=== PATIENT | female | born 1945 | race Caucasian/White ===

== ENCOUNTER 2016-12-05 06:41 | Day surgery (SDC) | payer OTHER ==
[~2016-12-05] VITALS: Ht 158.8 cm; Wt 65.0 kg
[~2016-12-05 06:41] MED LIST: FAMC250T PO; PRED10 PO
[2016-12-05 07:04] VITALS: BP 151/85; PULSE 85; RESP 20; TEMP 99.3; O2SAT 94
[2016-12-05] MEDS ORDERED: BENA25TA3 PO (07:13)
[2016-12-05] MEDS ORDERED: VAGI10TA VAGINAL (07:13)
[2016-12-05] MEDS ORDERED: LORA-392 PO (07:13)
[2016-12-05] MEDS ORDERED: ESTR0.62 TOP (07:13)
[2016-12-05] MEDS ORDERED: ERGO1CAP10 PO (07:13)
[2016-12-05] MEDS ORDERED: ADVI200C5 PO (07:13)
[2016-12-05 07:45] LABS: AUTOMATED NEUTROPHIL # 4.5 TH/MM3 (1.8-7.7); BASOPHIL % 0.4 % (0.0-2.0); EOSINOPHIL # 0.2 TH/MM3 (0-0.4); EOSINOPHIL % 2.7 % (0.0-4.0); HEMATOCRIT 43.9 % (35.0-46.0); HEMO FLAGS DIFF FINAL; LYMPH % 24.5 % (9.0-44.0); LYMPHOCYTE # 1.6 TH/MM3 (1.0-4.8); MEAN CELL VOLUME 89.8 FL (80.0-100.0); MEAN CORPUSCULAR HEMOGLOBIN 30.7 PG (27.0-34.0); MEAN CORPUSCULAR HGB CONC 34.1 % (32.0-36.0); MONO % 5.3 % (0.0-8.0); NEUT % 67.1 % (16.0-70.0); PLATELET COUNT 164 TH/MM3 (150-450); RED BLOOD COUNT 4.89 MIL/MM3 (4.00-5.30); RED CELL DISTRIBUTION WIDTH 13.8 % (11.6-17.2); WHITE BLOOD COUNT 6.7 TH/MM3 (4.0-11.0)
[2016-12-05] MEDS ORDERED: CHLORHEXIDINE GLUCONATE 2 % 1 PACK (2 CLOTHS) TOPICAL SCH (07:45)
[2016-12-05] MEDS ORDERED: SODIUM CHLORIDE 0.9% 1000 ML IV SCH (07:45)
[2016-12-05] MEDS ORDERED: VANCOMYCIN 1000 MG/NS 250 ML - implanted port/tunneled catheter IV SCH ×2 (07:45)
[2016-12-05] MEDS ORDERED: POVIDONE IODINE 5% (ANTISEPSIS KIT) 4 APPLICATIONS EACH NARE SCH (07:45)
[2016-12-05 07:51] LABS: APTT (PATIENT) 24.2 SEC (24.3-30.1); PROTHROMBIN TIME - PATIENT 10.6 SEC (9.8-11.6)
[2016-12-05] MEDS ORDERED: fentaNYL CITRATE 250 MCG/5 ML AMP ONE (08:25)
[2016-12-05] MEDS ORDERED: MIDAZOLAM HCL 5 MG/5 ML VIAL ONE (08:25)
[2016-12-05] MEDS ORDERED: LIDOCAINE 1%/EPINEPHrine 1:100,000 SOLN 20 ML VIAL ONE (08:46)
--- NOTE | 2016-12-05 09:05 | PD.RAD ---
Post Procedure Progress Note Pre Procedure Diagnosis: (1) Cancer Post Procedure Diagnosis: (1) Cancer Procedure Date: Dec 05, 2016 Supervising Radiologist: Claudy Rodriguez Proceduralist/Assist: Mallika Bravo, RT(R), Brittany Covarrubias RT(R)() Anesthesia: Conscious Sedation Plan of Activity Patient to Unit: ROPU Patient Condition: Good See PACS Report for procedural detail/treatment Central Venous Access Device Procedure 1 Right Internal Jugular Infusaport Placement single lumen Claudy Rodriguez MD Dec 05, 2016 09:05
[2016-12-05 09:15] VITALS: BP 124/35; PULSE 77; RESP 18; TEMP 97.8; O2SAT 94
[2016-12-05] MEDS ORDERED: SODIUM CHLORIDE 0.9% FLUSH 5 ML FLUSH IVF PRN (09:15)
[2016-12-05 09:30] VITALS: BP 122/64; PULSE 83; RESP 18; O2SAT 94
[2016-12-05 09:45] VITALS: BP 113/60; PULSE 83; RESP 18; O2SAT 94
[2016-12-05 10:15] VITALS: BP 102/47; PULSE 83; RESP 18; O2SAT 94
--- NOTE | 2016-12-05 10:28 | RADRPT ---
EXAM DATE/TIME: 12/05/2016 08:45 [facility] COMPARISON: No previous studies available for comparison. INDICATIONS : Patient is in need of placement of an Infusaport for chemotherapy treatment of non small cell lung ca ncer. MEDICAL HISTORY : History of breast cancer, lupus, Sjogren's syndrome, herpes, glaucoma. SURGICAL HISTORY : History of bilateral breast mastectomy and reconstruction, tummy tuck, urinary dilation, left great t oe joint replacement, rhinoplasty. ENCOUNTER: Initial ACUITY: 1 month PAIN SCORE: 0/10 FLUORO TIME: 0.4 minutes SEDATION TIME: 30 ACCESS: Right internal jugular vein SEDATION: 1.) 4 mg midazolam (Versed) IV 2.) 200 mcg fentanyl (Sublimaze) IV Vancomycin within 2 hours of procedure, Ancef (or alternative) within 1 hour of procedure. DEVICE: 1. 8 [place] Bard Power Port PROCEDURE : 1. Continuous pulse oximetry and EKG monitoring. 2. Intravenous conscious sedation. 3. Ultrasound guidance for venous access. 4. Fluoroscopic guided implantable central venous port placement. The patient was placed supine. The neck was prepped in sterile fashion. Full sterile technique was u sed, including cap, mask, sterile gloves and gown, and a large sterile sheet. Hand hygiene and 2% ch lorhexidine Betadine was utilized per protocol for cutaneous antisepsis with appropriate dry time for site. The skin and subcutaneous tissues were infiltrated with local anesthetic solution. Under direct ultrasound guidance, central venous access was accomplished in the targeted vessel. The ultrasound images depicting access guidance were stored and saved to PACS for permanent record. A s ubcutaneous pocket was created using blunt dissection. The port was introduced to the pocket. The c atheter tubing was fed through a subcutaneous tunnel to the venotomy site. The catheter tubing was c ut to a suitable length and then was introduced through a valved Peel-Away sheath and positioned with catheter tubing tip at the cavo-atrial junction level. The pocket incision was closed with subcutic ular Vicryl suture. Steri-Strips were applied. The port was flushed and locked with heparin solutio n per protocol. Sterile dressing was applied to the site. The patient tolerated the procedure well. Conscious sedation was performed with the prescribed dosages and duration as above. The patient adalgisa ated the procedure well and there were no complications. EKG and oximetry remained stable throughout the procedure. The patient was sent to post anesthesia recovery in stable condition. CONCLUSION: Uncomplicated ultrasound and fluoroscopic guided implanted central venous port catheter placement as described in detail above. An 8 [place] Power port was placed. Claudy Rodriguez MD on December 05, 2016 at 10:26 Board Certified Radiologist. This report was verified electronically.
[2016-12-05 11:00] VITALS: BP 109/49; PULSE 83; RESP 18; TEMP 97.8; O2SAT 96
== END 2016-12-05 11:09 | disposition home or self-care (01) ==
LOC: HROP 06:41 → HRIP 06:43 → HROP 11:09
PROVIDERS: ATTEND Internal Medicine Hematology
DX: Z45.2 Encounter for adjustment and management of vascular access device (principal); C50.211 Malignant neoplasm of upper-inner quadrant of right female breast; C34.11 Malignant neoplasm of upper lobe, right bronchus or lung; M32.9 Systemic lupus erythematosus, unspecified; Z79.01 Long term (current) use of anticoagulants
CPT/HCPCS: 36561; 76937; 77001; 85025; 85610; 85730; 99152; 99153; C1788; J1642; J2250; J3010; J3370; J7030; J7050